=== PATIENT | male | born 1965 | race Caucasian/White ===

== ENCOUNTER 2017-08-18 12:50 | Emergency (ER) | payer MEDICARE ==
[~2017-08-18] VITALS: Ht 175.3 cm; Wt 125.0 kg
[2017-08-18 12:54] VITALS: TEMP 97.7
[2017-08-18] MEDS ORDERED: PRAVACHOL80 MG PO (13:50)
[2017-08-18] MEDS ORDERED: ZOVIRAX400 MG PO (13:50)
[2017-08-18] MEDS ORDERED: GLUCOTROL10 MG PO (13:51)
[2017-08-18] MEDS ORDERED: NOVOLOG FLEX100 U/ML SQ (13:52)
[2017-08-18] MEDS ORDERED: CLARITIN 1010 MG/TAB PO (13:52)
[2017-08-18] MEDS ORDERED: LEVEMIR FLEX100 U/ML (13:53)
[2017-08-18] MEDS ORDERED: VASCEPA0.5 GM PO (13:53)
[2017-08-18] MEDS ORDERED: GLUCOPHAGE500 MG/TAB PO (13:54)
[2017-08-18] MEDS ORDERED: ZANTAC 300300 MG PO (13:55)
[2017-08-18] MEDS ORDERED: VITAMIN D 50,1.25 MG PO (13:56)
[2017-08-18] MEDS ORDERED: LYRICA 150MG C150 MG PO (13:57)
[2017-08-18] MEDS ORDERED: ASTEPRO205.5 MCG/ (13:57)
[2017-08-18] MEDS ORDERED: FLONASEALLERGY (13:58)
[2017-08-18] MEDS ORDERED: CIPRO 500M500 MG/5 M PO (13:59)
[2017-08-18] MEDS ORDERED: DOXYCYCLINE 10100 MG PO (13:59)
[2017-08-18] MEDS ORDERED: LASIX 20MG TABL20 MG PO (14:51)
[2017-08-18] MEDS ORDERED: K-DUR 10 MEQ T10 MEQ PO (14:51)
[2017-08-18 15:54] VITALS: BP 125/79; PULSE 79
== END 2017-08-18 15:55 | disposition home or self-care (01) ==
LOC: COL.ER 12:50
DX: R60.0 Localized edema (principal); E11.9 Type 2 diabetes mellitus without complications; Z85.72 Personal history of non-Hodgkin lymphomas; Z79.4 Long term (current) use of insulin